=== PATIENT | female | born 1955 | race Caucasian/White ===

== ENCOUNTER 2021-01-22 10:10 | Day surgery (SDC) | payer OTHER | END 2021-01-22 11:52 | disposition home or self-care (01) | LOC: CSHSDC/OP 10:10 | PROVIDERS: ATTEND Family Medicine | DX: Z23 Encounter for immunization (principal); U07.1 COVID-19; E11.9 Type 2 diabetes mellitus without complications | CPT/HCPCS: 96365; J3490; M0243; Q0244 ==